=== PATIENT | female | born 1960 | race American Indian/Alaskan Native ===

== ENCOUNTER 2017-05-02 13:30 | Outpatient (CLI) | payer OTHER ==
--- NOTE | 2017-05-02 14:35 | XRay Report ---
XRAY RIGHT SHOULDER THREE VIEWS: 05/02/17 13:30:00 CLINICAL: Pain. FINDINGS: Normal glenohumeral alignment. Normal AC joint. No fracture or dislocation. Mild calcifications at the rotator cuff insertion at the lateral humerus. Normal soft tissues. IMPRESSION: Calcific tendinitis of the rotator cuff.
== END 2017-05-02 13:31 | disposition home or self-care (01) ==
LOC: SPVIMAG 13:30
PROVIDERS: ATTEND Orthopaedic Surgery
DX: M75.31 Calcific tendinitis of right shoulder (principal); M25.811 Other specified joint disorders, right shoulder